=== PATIENT | female | born 1975 | race Caucasian/White ===

== ENCOUNTER 2016-06-28 09:50 | Emergency (ER) | payer OTHER ==
[~2016-06-28] VITALS: Ht 154.9 cm; Wt 77.0 kg
[~2016-06-28 09:50] MED LIST: ALPR0.5T PO; FAMO40TA52 PO; PROC10TA10 PO
[2016-06-28 10:08] VITALS: Ht 154.9 cm; Wt 77.0 kg
--- NOTE | 2016-06-28 10:58 | ERD ---
ER Documentation Chief Complaint Date/Time DATE: 06/28/16 TIME: 10:56 Chief Complaint COUGH X2 WEEKS MUCH WORSE IN PAST 3-DAYS HPI This is a 40-year-old female presents to the emergency department today complaining of a chronic cough. Patient states it has been worse for the last couple of days. See she has a history of gastric reflux. States that the cough is intermittent. States that when she leans forward the burning is worse. Denies any chest pain or shortness of breath. States that last year she had an endoscopy but it was not completed as he woke up during the procedure and the procedure was never rescheduled. States that a couple of days ago she went to urgent care and was switched from Pepcid and Prilosec is not proptotic. She states she is unable to see her primary care physician for a couple of weeks and she is considering changing her doctor at this time. States that she has been given a GI cocktail here in the past and it has helped her. Dates that she is concerned that she could have cancer. States she would like a chest x-ray. Denies any fevers or chills or other symptoms. ROS All systems reviewed and are negative except as per history of present illness. Medications Home Meds Active Scripts Ondansetron Hcl* (Zofran*) 4 Mg Tablet, 4 MG PO Q6H for NAUSEA AND/OR VOMITING, #30 TAB Prov:PRABHU SHIN PA-C 06/28/16 Prochlorperazine* (Prochlorperazine*) 10 Mg Tablet, 10 MG PO Q6 Y for NAUSEA AND /OR VOMITING, #20 TAB Prov:SUKHWINDER ALEGRE MD 03/31/15 Reported Medications Famotidine* (Famotidine*) 40 Mg Tablet, 40 MG PO HS, TAB 03/31/15 Alprazolam* (Xanax*) 0.5 Mg Tab, 0.5 MG PO Q8H Y for ANXIETY, TAB 03/31/15 Allergies Allergies: Coded Allergies: No Known Drug Allergies (Verified Allergy, Mild, 03/31/15) PMhx/Soc History of Surgery: No (HEMORRHOIDECTOMY) Anesthesia Reaction: No Hx Neurological Disorder: No Hx Respiratory Disorders: No Hx Cardiac Disorders: Yes (HTN) Hx Psychiatric Problems: No Hx Miscellaneous Medical Probl: Yes (GERD) Hx Alcohol Use: No Hx Substance Use: No Hx Tobacco Use: No Smoking Status: Never smoker Physical Exam Vitals Vital Signs Date Time Temp Pulse Resp B/P Pulse Ox O2 Delivery O2 Flow Rate FiO2 06/28/16 10:08 98.6 89 18 132/87 98 Physical Exam Const: Talkative, no acute distress Head: Atraumatic Eyes: Normal Conjunctiva ENT: Normal External Ears, Nose and Mouth. Neck: Full range of motion..~ No meningismus. Resp: Clear to auscultation bilaterally. No Absent breath sounds. No wheezing Cardio: Regular rate and rhythm, no murmurs Abd: Soft, non tender, non distended. Normal bowel sounds Skin: No petechiae or rashes Ext: No cyanosis, or edema. No calf tenderness Neur: Awake and alert Psych: Normal Mood and Affect Results 24 hrs Current Medications Medications (Trade) Dose Ordered Sig/Siva Route PRN Reason Start Time Stop Time Status Last Admin Dose Admin Miscellaneous Medication (Gi Cocktail (2)) 40 ml ONCE ONCE PO 06/28/16 11:00 06/28/16 11:01 DC 06/28/16 10:50 Ondansetron HCl (Zofran Odt) 4 mg ONCE STAT ODT 06/28/16 11:24 06/28/16 11:26 DC 06/28/16 11:43 Procedures/MDM This is a 40-year-old female who presents to the emergency department today for chronic cough and burning in her throat that has been worse over the past couple of weeks. Patient states that she has a history of gastric reflux and last year had an endoscopy that was not completed as she woke up during the procedure. Patient states she is unable to see her primary care physician until the when she called last week however she did not keep that appointment. She states that she went to urgent care a few days ago and was switched from Pepcid and Prilosec to Protonix. States that she has no other symptoms other than she gets the burning in her chest that is substernal and is worse when she bends forward. Patient was seen here March 2015 for similar symptoms. She had a full workup at that time that showed a negative chest x-ray, negative laboratory work and a negative CT angiogram. Patient was concerned that she could have some sort of cancerous lesion and was requesting a chest x-ray. I did agree to chest x-ray. Patient is afebrile and otherwise well appearing. She is talkative in the exam room and is able to give me a full history. Her oxygen saturation is 98%. Her symptoms of cough and esophageal burning apppear to be chronic in nature. I do not feel the patient requires laboratory work or other imaging at this time. Chest x-ray is negative. There is no acute cardiopulmonary abnormality. There is no focal consolidation, pleural effusion or pneumothorax. I have low suspicion for PE, pneumonia, pneumothorax, bronchitis, sepsis or severe acute bacterial infection. Symptoms are chronic cough of uncertain etiology as well as gastric reflux. She was given a GI cocktail here in the emergency department she states that helped in the past. Patient was stating that she felt increased burning after the GI cocktail and was reporting some nausea. She was given Zofran here. She was given a prescription for Zofran for home I've explained to the patient that she has been to various doctors and is not having any consistency with her care or treatment. I explained to the patient she needs to follow up and keep her appointment with her primary care physicians that she may get referral to GI specialist or pulmonology's. I will give her a list of resources. She was instructed to call her insurance company to find out who is in her network that she may go see. I have explained to the patient that she will need to do a little bit of the leg work on her own. Patient understood. I have printed out copies of the reports for patient's images. She was given a prescription for Zofran for home however I do not feel that the patient requires antibiotics for her chronic cough at this time. Patient is very concerned that she may have esophageal cancer not explained to her again in full detail what she needs to do to follow through.. He was instructed to take the Protonix she was prescribed. Patient understood At this time the patient is stable for discharge and outpatient management. Patient should follow up with their PCP in the next 1-2 days. They may return to the emergency department sooner for any persistent or worsening of symptoms. Patient understood and agreed with the plan. Departure Diagnosis: Primary Impression: Cough Additional Impression: Gastric reflux Condition: PRABHU Ortiz PA-C Jun 28, 2016 10:58
[2016-06-28] MEDS ORDERED: LIDOCAINE/MYLANTA 40 ML BTL PO ONE (11:00)
[2016-06-28] MEDS ORDERED: ONDANSETRON (ODT) 4 MG TAB ODT STA (11:24)
[2016-06-28] MEDS ORDERED: ONDANSETRON (ODT) 4 MG TAB ODT ONE ×2 (11:38→11:44)
[2016-06-28] MEDS ORDERED: ONDA4TAB8 PO (12:15)
[2016-06-28 12:21] VITALS: BP 146/86
--- NOTE | 2016-06-28 19:18 | RADRPT ---
PROCEDURE: XR Chest. CLINICAL INDICATION: Shortness of breath with chronic cough TECHNIQUE: Single frontal chest x-ray. COMPARISON: None FINDINGS: The lungs are adequately expanded and clear. There is no focal consolidation, pleural effusion, or pneumothorax. The heart and mediastinal contours are unremarkable. Bones are unremarkable. No acu te fractures are present. RPTAT: EE IMPRESSION: No acute cardiopulmonary abnormality. .Lisa Herr MD, MD Date Time Electronically viewed and signed by .Lisa Herr MD, MD on 06/28/2016 11:49 .T/
== END 2016-06-28 12:22 | disposition home or self-care (01) ==
LOC: FTE 09:50
DX: R05 Cough (principal); K21.9 Gastro-esophageal reflux disease without esophagitis; R11.0 Nausea; I10 Essential (primary) hypertension
CPT/HCPCS: 71010